=== PATIENT | female | born 1985 | race Caucasian/White ===

== ENCOUNTER 2017-08-09 13:53 | Emergency (ER) | payer BC, OTHER ==
--- NOTE | 2017-08-09 15:39 | EKG REPORT ---
SEVERITY:- OTHERWISE NORMAL ECG - SINUS RHYTHM BORDERLINE RIGHT AXIS DEVIATION : Confirmed by: Lisa Batista MD 09-Aug-2017 15:37:49
--- NOTE | 2017-08-09 15:50 | ER Document Report ---
ED Medical Screen (RME) - General Chief Complaint: Chest Pain Stated Complaint: CHEST PAINS Mode of Arrival: Ambulatory Information source: Patient TRAVEL OUTSIDE OF THE [place] IN LAST 30 DAYS: No - HPI Notes: 08/09/17 15:48 31 yr old female with complaints of palpitations for the last few years but has become progressively worse over the last couple. Reports she reports some difficulty with taking a full breath and hard to breath. no new medications, travel or new food.She is currently on her menses, stopped taking the depo shot x 1 month ago. Was told by a provider recently that she may have a heart murmur. Eating and drinking without issues. occasionally drinks coffee, smokes once a week when she drinks. Denies . Denies fevers, chills, chest pain , nausea, vomiting, diarrhea, abdominal pain, hematuria,blurred vision, double vision, loss of vision, speech changes, LH, dizziness, syncope, headaches, wheezing, ST, URI, neck pain, weakness, bowel or bladder dysfunction, saddle anesthesia, numbness or tingling in bilateral upper or lower extremities equally , muscle paralysis, weakness in bilateral upper or lower extremities equally or rash. Denies IV drug use. I have greeted and performed a rapid initial assessment of this patient. A comprehensive ED assessment and evaluation of the patient, analysis of test results and completion of medical decision making process will be conducted by an additional ED providers. - Related Data Allergies/Adverse Reactions: No Known Allergies Allergy (Verified 03/13/15 04:16) Past Medical History Psychiatric Medical History: Reports: Hx Attention Deficit Hyperactivity Disorder - Immunizations Hx Diphtheria, Pertussis, Tetanus Vaccination: Yes Review of Systems - Review of Systems Constitutional: See HPI EENT: No symptoms reported Cardiovascular: See HPI Respiratory: No symptoms reported Gastrointestinal: No symptoms reported Genitourinary: No symptoms reported Female Genitourinary: No symptoms reported Musculoskeletal: No symptoms reported Skin: No symptoms reported Hematologic/Lymphatic: No symptoms reported Neurological/Psychological: No symptoms reported Physical Exam - Vital signs Vitals: Temp Pulse Resp BP Pulse Ox 99.3 F 79 14 146/83 H 98 08/09/17 13:56 08/09/17 13:56 08/09/17 13:56 08/09/17 13:56 08/09/17 13:56 - Respiratory Respiratory status: No respiratory distress Breath sounds: Normal Chest palpation: Normal - Cardiovascular Rhythm: Other Murmur: Yes - S3 Normal capillary refill: Yes - Abdominal Inspection: Normal Distension: No distension Bowel sounds: Normal Tenderness: Nontender Organomegaly: No organomegaly Course - Vital Signs Vital signs: Temp Pulse Resp BP Pulse Ox 99.3 F 79 14 146/83 H 98 08/09/17 13:56 08/09/17 13:56 08/09/17 13:56 08/09/17 13:56 08/09/17 13:56 Doctor's Discharge - Discharge Referrals: GLEN MORGAN NP [Primary Care Provider] - Follow up as needed
--- NOTE | 2017-08-09 16:25 | RADIOLOGY REPORT (SQ) ---
EXAM DESCRIPTION: CHEST SINGLE VIEW COMPLETED DATE/TIME: 08/09/2017 4:13 pm REASON FOR STUDY: heart racing COMPARISON: 05/08/2012 EXAM PARAMETERS: NUMBER OF VIEWS: One view. TECHNIQUE: Single frontal radiographic view of the chest acquired. RADIATION DOSE: NA LIMITATIONS: None. FINDINGS: LUNGS AND PLEURA: No opacities, masses or pneumothorax. No pleural effusion. MEDIASTINUM AND HILAR STRUCTURES: No masses. Contour normal. HEART AND VASCULAR STRUCTURES: Heart normal in size. Normal vasculature. BONES: No acute findings. HARDWARE: None in the chest. OTHER: No other significant finding. IMPRESSION: NO ACUTE RADIOGRAPHIC FINDING IN THE CHEST. TECHNICAL DOCUMENTATION: JOB ID: [id number] [employer]- All Rights Reserved Reading location - IP/workstation name: [email or web address]
[2017-08-09 16:27] LABS: ABSOLUTE EOSINOPHILS # (AUTO) 0.1 10^3/uL (0.0-0.6); ABSOLUTE MONOCYTES (AUTO) 0.5 10^3/uL (0.1-1.4); ABSOLUTE NEUT (AUTO) 4.1 10^3/uL (1.7-8.2); BASOPHILS % (AUTO) 0.7 % (0-2); EOSINOPHILS % (AUTO) 1.1 % (0-6); HEMATOCRIT 41.6 % (36.0-47.0); HEMOGLOBIN 14.2 g/dL (12.0-15.5); LYMPHOCYTES % (AUTO) 29.8 % (13-45); MEAN CORPUSCULAR HEMOGLOBIN 30.9 pg (27.0-33.4); MEAN CORPUSCULAR HGB CONC 34.3 g/dL (32.0-36.0); MEAN CORPUSCULAR VOLUME 90 fl (80-97); MONOCYTES % (AUTO) 7.4 % (3-13); PLATELET COUNT 240 10^3/uL (150-450); RED BLOOD COUNT 4.61 10^6/uL (3.72-5.28); RED CELL DISTRIBUTION WIDTH 14.2 % (11.5-14.0); TOTAL CELLS COUNTED % (AUTO) 100 %; WHITE BLOOD COUNT 6.8 10^3/uL (4.0-10.5)
[2017-08-09 16:42] LABS: ALANINE AMINOTRANSFERASE 22 U/L (9-52); ALBUMIN 5.1 g/dL (3.5-5.0); ALKALINE PHOSPHATASE 92 U/L (38-126); ANION GAP 12 (5-19); ASPARTATE AMINO TRANSFERASE 19 U/L (14-36); BILIRUBIN,DIRECT 0.2 mg/dL (0.0-0.4); BILIRUBIN,TOTAL 0.5 mg/dL (0.2-1.3); BLOOD UREA NITROGEN 13 mg/dL (7-20); CARBON DIOXIDE 25 mmol/L (22-30); CHLORIDE 107 mmol/L (98-107); GLUCOSE 90 mg/dL (75-110); SODIUM 144.2 mmol/L (137-145); TOTAL PROTEIN 8.4 g/dL (6.3-8.2)
[2017-08-09 17:42] LABS: APPEARANCE,URINE CLEAR; BILIRUBIN,URINE NEGATIVE (NEGATIVE); COLOR,URINE STRAW; GLUCOSE, URINE NEGATIVE (NEGATIVE); KETONES,URINE NEGATIVE (NEGATIVE); LEUKOCYTE ESTERASE,URINE NEGATIVE (NEGATIVE); NITRITE,URINE NEGATIVE (NEGATIVE); PROTEIN,URINE NEGATIVE (NEGATIVE); URINE SPECIFIC GRAVITY 1.006; UROBILINOGEN,URINE NEGATIVE mg/dL (<2.0)
--- NOTE | 2017-08-09 18:51 | ER Document Report ---
ED General - General Chief Complaint: Chest Pain Stated Complaint: CHEST PAINS Time Seen by Provider: 08/09/17 16:14 Mode of Arrival: Ambulatory Information source: Patient TRAVEL OUTSIDE OF THE [place] IN LAST 30 DAYS: No - HPI Notes: 31 yr old female with complaints of palpitations for the last few years but has become progressively worse over the last couple. Reports she reports some difficulty with taking a full breath and hard to breath. no new medications, travel or new food.She is currently on her menses, stopped taking the depo shot x 1 month ago. Was told by a provider recently that she may have a heart murmur. Eating and drinking without issues. occasionally drinks coffee, smokes once a week when she drinks. Denies . Denies fevers, chills, chest pain , nausea, vomiting, diarrhea, abdominal pain, hematuria,blurred vision, double vision, loss of vision, speech changes, LH, dizziness, syncope, headaches, wheezing, ST, URI, neck pain, weakness, bowel or bladder dysfunction, saddle anesthesia, numbness or tingling in bilateral upper or lower extremities equally , muscle paralysis, weakness in bilateral upper or lower extremities equally or rash. Denies IV drug use. - Related Data Allergies/Adverse Reactions: No Known Allergies Allergy (Verified 03/13/15 04:16) Past Medical History - General Information source: Patient - Social History Smoking Status: Never Smoker Chew tobacco use (# tins/day): No Frequency of alcohol use: None Drug Abuse: None Family History: Reviewed & Not Pertinent Patient has suicidal ideation: No Patient has homicidal ideation: No Renal/ Medical History: Denies: Hx Peritoneal Dialysis Psychiatric Medical History: Reports: Hx Attention Deficit Hyperactivity Disorder - Immunizations Hx Diphtheria, Pertussis, Tetanus Vaccination: Yes Review of Systems - Review of Systems Constitutional: No symptoms reported EENT: No symptoms reported Cardiovascular: See HPI Respiratory: No symptoms reported Gastrointestinal: No symptoms reported Genitourinary: No symptoms reported Female Genitourinary: No symptoms reported Musculoskeletal: No symptoms reported Skin: No symptoms reported Hematologic/Lymphatic: No symptoms reported Neurological/Psychological: No symptoms reported Physical Exam - Vital signs Vitals: Temp Pulse Resp BP Pulse Ox 99.3 F 79 14 146/83 H 98 08/09/17 13:56 08/09/17 13:56 08/09/17 13:56 08/09/17 13:56 08/09/17 13:56 - Notes Notes: PHYSICAL EXAMINATION: GENERAL: Well-appearing, well-nourished and in no acute distress. HEAD: Atraumatic, normocephalic. EYES: Pupils equal round and reactive to light, extraocular movements intact, conjunctiva are normal. ENT: Nares patent, oropharynx clear without exudates. Moist mucous membranes. NECK: Normal range of motion, supple without lymphadenopathy LUNGS: Breath sounds clear to auscultation bilaterally and equal. No wheezes rales or rhonchi. HEART: Regular rate and rhythm without murmurs, noted S3 on auscultation ABDOMEN: Soft, nontender, nondistended abdomen. No guarding, no rebound. No masses appreciated. Female : deferred Musculoskeletal: Normal range of motion, no pitting or edema. No cyanosis. NEUROLOGICAL: Cranial nerves grossly intact. Normal speech, normal gait. Normal sensory, motor exams PSYCH: Normal mood, normal affect. SKIN: Warm, Dry, normal turgor, no rashes or lesions noted. Course - Re-evaluation Re-evalutation: 08/09/17 19:33 31-year-old female, afebrile, slightly tachycardic on initial presentation, however patient's heart rate did return to 60s, normal sinus rhythm. CBC negative for anemia or leukocytosis, CMP negative for hepatic deficiency, TSH within normal range. EKG shows non-STEMI. Chest x-ray negative. Urinalysis unremarkable. Discussed with patient that she does need follow-up with [facility] but she does not fact have a S3 heard on auscultation patient the need follow-up with cardiology and possible echocardiogram outpatient. Vitals are within normal limits at triage and at time of discharge. Physical examination is unremarkable. Patient has tolerated oral intake without difficulty. Patient was not noted to be in distress at any point during their ER visit. At this time, based on the reassuring evaluation, I do not suspect an acute HI, pneumothorax pulmonary embolus, aortic dissection, acute intra- abdominal pathology, stroke, or sepsis.Will discharge with return precautions and follow-up recommendations. Verbal discharge instructions given a the bedside and opportunity for questions given. Medication warnings reviewed. Patient is in agreement with this plan and has verbalized understanding of return precautions and the need for primary care follow-up in the next 24-72 hours. - Vital Signs Vital signs: Temp Pulse Resp BP Pulse Ox 98.9 F 62 18 122/76 100 08/09/17 18:55 08/09/17 18:55 08/09/17 18:55 08/09/17 18:55 08/09/17 18:55 - Laboratory Result Diagrams: 08/09/17 16:08 08/09/17 16:08 Laboratory results interpreted by me: 08/09/17 08/09/17 16:08 16:08 RDW 14.2 H Total Protein 8.4 H Albumin 5.1 H Discharge - Discharge Clinical Impression: Tachycardia, resolved tachycardia, Anxiety Condition: Stable Disposition: HOME, SELF-CARE Instructions: Anxiety ([facility]), Chest Pain of Unclear Cause ([facility]) Additional Instructions: All of your lab work was completely normal. Your thyroid is normal. Avoid caffeine, stimulants. Follow-up with [facility] within 1 week. Discuss guided imagery and stress reducing techniques. Follow-up with your primary care provider within 24-72 hours. Return immediately for any new or worsening symptoms. Follow up with primary care provider, call tomorrow to make followup appointment. Referrals: GLEN MORGAN NP [NURSE PRACTITIONER] - Follow up as needed BRAULIO ACEVEDO MD [ACTIVE STAFF] - Follow up in 3-5 days
[2017-08-09 18:56] VITALS: BP 122/76
== END 2017-08-09 18:55 | disposition home or self-care (01) ==
LOC: ER 13:53
DX: F41.9 Anxiety disorder, unspecified (principal); R00.2 Palpitations; R00.0 Tachycardia, unspecified
CPT/HCPCS: 36415; 71045; 80053; 81001; 81025; 83735; 84443; 85025; 85379; 93005; 93010; 99285

== ENCOUNTER 2018-05-08 10:52 | Emergency (ER) | payer BC ==
--- NOTE | 2018-05-08 11:22 | ER Document Report ---
ED Medical Screen (RME) - General Chief Complaint: Abdominal Pain Stated Complaint: ABDOMINAL PAIN Time Seen by Provider: 05/08/18 11:18 Primary Care Provider: ROCK IRAHETA DO [Primary Care Provider] - Follow up as needed Notes: Patient is here complaining of sudden onset of pain in right lower quadrant of her abdomen last evening about 7 PM. She had planned to go to dinner with her mother, but was unable to do so because of the severity of the pain. She had been feeling fine prior to the sudden onset of this pain. She has had some nausea but not vomiting. Some urinary frequency. Has not had any fever. Patient says that she was told that she probably had a kidney stone that she passed when she was , but no imaging was done because she was . Patient has palpitations for which she takes propanolol. Also has a history of anxiety. TRAVEL OUTSIDE OF THE [place] IN LAST 30 DAYS: No - Related Data Allergies/Adverse Reactions: No Known Allergies Allergy (Verified 05/08/18 10:55) Past Medical History Renal/ Medical History: Denies: Hx Peritoneal Dialysis Psychiatric Medical History: Reports: Hx Attention Deficit Hyperactivity Disorder - Immunizations Hx Diphtheria, Pertussis, Tetanus Vaccination: Yes Physical Exam - Vital signs Vitals: Temp Pulse Resp BP Pulse Ox 98.8 F 86 15 132/67 H 100 05/08/18 11:01 05/08/18 11:01 05/08/18 11:01 05/08/18 11:01 05/08/18 11:01 Course - Vital Signs Vital signs: Temp Pulse Resp BP Pulse Ox 98.8 F 86 15 132/67 H 100 05/08/18 11:01 05/08/18 11:01 05/08/18 11:01 05/08/18 11:01 05/08/18 11:01 Doctor's Discharge - Discharge Referrals: ROCK IRAHETA DO [Primary Care Provider] - Follow up as needed
[2018-05-08 11:50] LABS: ABSOLUTE LYMPHOCYTES (AUTO) 0.9 10^3/uL (0.5-4.7); ABSOLUTE MONOCYTES (AUTO) 0.4 10^3/uL (0.1-1.4); ABSOLUTE NEUT (AUTO) 4.7 10^3/uL (1.7-8.2); BASOPHILS % (AUTO) 0.3 % (0-2); EOSINOPHILS % (AUTO) 0.7 % (0-6); HEMATOCRIT 38.3 % (36.0-47.0); HEMOGLOBIN 13.6 g/dL (12.0-15.5); LYMPHOCYTES % (AUTO) 14.7 % (13-45); MEAN CORPUSCULAR HEMOGLOBIN 31.6 pg (27.0-33.4); MEAN CORPUSCULAR HGB CONC 35.5 g/dL (32.0-36.0); MEAN CORPUSCULAR VOLUME 89 fl (80-97); MONOCYTES % (AUTO) 6.6 % (3-13); PLATELET COUNT 166 10^3/uL (150-450); RED BLOOD COUNT 4.31 10^6/uL (3.72-5.28); RED CELL DISTRIBUTION WIDTH 13.2 % (11.5-14.0); SEGMENTED NEUTROPHILS % (AUTO) 77.7 % (42-78); TOTAL CELLS COUNTED % (AUTO) 100 %; WHITE BLOOD COUNT 6.1 10^3/uL (4.0-10.5)
[2018-05-08 11:51] LABS: APPEARANCE,URINE CLEAR; BILIRUBIN,URINE NEGATIVE (NEGATIVE); COLOR,URINE AMBER; GLUCOSE, URINE NEGATIVE (NEGATIVE); KETONES,URINE NEGATIVE (NEGATIVE); LEUKOCYTE ESTERASE,URINE NEGATIVE (NEGATIVE); NITRITE,URINE NEGATIVE (NEGATIVE); PROTEIN,URINE NEGATIVE (NEGATIVE); URINE SPECIFIC GRAVITY 1.008; UROBILINOGEN,URINE NEGATIVE mg/dL (<2.0)
[2018-05-08 12:00] LABS: ALANINE AMINOTRANSFERASE 18 U/L (9-52); ALKALINE PHOSPHATASE 74 U/L (38-126); ANION GAP 12 (5-19); ASPARTATE AMINO TRANSFERASE 16 U/L (14-36); BILIRUBIN,TOTAL 0.9 mg/dL (0.2-1.3); BLOOD UREA NITROGEN 13 mg/dL (7-20); CALCIUM 10.2 mg/dL (8.4-10.2); CARBON DIOXIDE 27 mmol/L (22-30); CHLORIDE 104 mmol/L (98-107); GLUCOSE 95 mg/dL (75-110); LIPASE 52.8 U/L (23-300); POTASSIUM 4.8 mmol/L (3.6-5.0); SODIUM 142.5 mmol/L (137-145)
--- NOTE | 2018-05-08 12:46 | RADIOLOGY REPORT (SQ) ---
EXAM DESCRIPTION: U/S NON OB PEL TV W/DOPPLER COMPLETED DATE/TIME: 05/08/2018 12:29 pm REASON FOR STUDY: RLQ pain, sudden onset, ? Hx kidney stone COMPARISON: None. TECHNIQUE: Dynamic and static grayscale images acquired of the pelvis via transvaginal approach and recorded on PACS. Additional selected color Doppler and spectral images recorded. LIMITATIONS: None. FINDINGS: UTERUS: Normal contour. Uterine fundus myometrium as heterogenous. ENDOMETRIAL STRIPE: No focal or generalized thickening. No masses. CERVIX: No nabothian cysts. RIGHT OVARY AND DOPPLER: Normal size. No worrisome masses. Normal vascular flow without evidence for torsion. LEFT OVARY AND DOPPLER: Complex cyst within the left ovary with low level internal echoes in no discr ete internal color flow. This measures 3.9 x 3.5 x 3.8 cm. Normal color flow within the left ovary. FREE FLUID: Small amount of free fluid in the pelvis which may be physiologic in a menstruating femal e. OTHER: No other significant finding. MEASUREMENTS: UTERUS: 7.5 x 4.8 x 5.7 cm ENDOMETRIAL STRIPE: 11 mm RIGHT OVARY: 2.8 x 1.7 x 1.9 cm LEFT OVARY: 4.4 x 4.1 x 4.4 cm. IMPRESSION: 1. Complex cyst of the left ovary. Differential considerations include hemorrhagic cyst, endometriom a, less likely dermoid. 2. Heterogenous appears a myometrium in the uterine fundus which may represent adenomyosis versus und erlying fibroid. COMMENT: Premenopausal US [id number] week followup US; if not a resolving hemorrhagic cyst, continued US or MRI followup; if endometrioma or dermoid still not confirmed, consider surgical cons ultation TECHNICAL DOCUMENTATION: JOB ID: [id number] [employer]- All Rights Reserved Rev-07/09 Reading location - IP/workstation name: [email or web address]
--- NOTE | 2018-05-08 12:49 | RADIOLOGY REPORT (SQ) ---
EXAM DESCRIPTION: U/S ABDOMEN LTD W/DOPPLER COMPLETED DATE/TIME: 05/08/2018 12:29 pm REASON FOR STUDY: RLQ pain, sudden onset, ? Hx kidney stone COMPARISON: None. TECHNIQUE: Dynamic and static grayscale images acquired of the abdomen and recorded on PACS. Armando amairani selected color Doppler and spectral images recorded. LIMITATIONS: Suboptimal exam due to overlying bowel gas and rib shadowing. FINDINGS: PANCREAS: Obscured by overlying bowel gas. LIVER: No masses. Echotexture normal. LIVER VASCULATURE: Normal directional flow of the main portal vein and hepatic veins. GALLBLADDER: No stones. Normal wall thickness. No pericholecystic fluid. ULTRASOUND-DETECTED RANDLE'S SIGN: Negative. INTRAHEPATIC DUCTS AND COMMON DUCT: CBD and intrahepatic ducts normal caliber. No filling defects. INFERIOR VENA CAVA: Obscured due to overlying bowel gas. AORTA: No aneurysm. RIGHT KIDNEY: Normal size. Normal echogenicity. No solid or suspicious masses. No hydronephrosis. No calcifications. PERITONEAL AND RIGHT PLEURAL SPACE: No ascites or effusions. OTHER: Survey images of the right lower quadrant of the abdomen demonstrate no mass or free fluid. IMPRESSION: Suboptimal exam due to shadowing from overlying bowel gas and ribs. Normal right upper quadrant ultrasound. TECHNICAL DOCUMENTATION: JOB ID: [id number] [employer]- All Rights Reserved Reading location - IP/workstation name: [email or web address]
--- NOTE | 2018-05-08 13:26 | ER Document Report ---
ED GI/ - General Chief Complaint: Abdominal Pain Stated Complaint: ABDOMINAL PAIN Time Seen by Provider: 05/08/18 11:18 Primary Care Provider: ROCK IRAHETA DO [Primary Care Provider] - Follow up as needed Information source: Patient Notes: Patient is a 32-year-old female who presents today with the onset of some bilateral lower quadrant pain right greater than left starting yesterday. Worse with movement. No aggravating or relieving factors otherwise. No fevers, dysuria, vomiting, vaginal discharge, missed menstrual periods, or flank pain. No previous pain to this region prior. TRAVEL OUTSIDE OF THE [place] IN LAST 30 DAYS: No - Related Data Allergies/Adverse Reactions: No Known Allergies Allergy (Verified 05/08/18 10:55) Past Medical History - Social History Smoking Status: Former Smoker Family History: Reviewed & Not Pertinent Patient has suicidal ideation: No Patient has homicidal ideation: No Renal/ Medical History: Denies: Hx Peritoneal Dialysis Psychiatric Medical History: Reports: Hx Attention Deficit Hyperactivity Disorder - Immunizations Hx Diphtheria, Pertussis, Tetanus Vaccination: Yes Review of Systems - Review of Systems Constitutional: denies: Fever EENT: denies: Eye discharge, Nose discharge Cardiovascular: denies: Chest pain, Palpitations Respiratory: denies: Short of breath Gastrointestinal: denies: Vomiting Genitourinary: denies: Dysuria Musculoskeletal: denies: Leg swelling Skin: Other - no hives. denies: Rash Neurological/Psychological: Other - no slurred speech -: Yes All other systems reviewed and negative Physical Exam - Vital signs Vitals: Temp Pulse Resp BP Pulse Ox 98.8 F 86 15 132/67 H 100 05/08/18 11:01 05/08/18 11:01 05/08/18 11:01 05/08/18 11:01 05/08/18 11:01 Notes: Reviewed vital signs and nursing note as charted by RN. CONSTITUTIONAL: Alert and oriented and responds appropriately to questions. Well-appearing; well-nourished HEAD: Normocephalic; atraumatic EYES: Sclerae non-icteric ENT: Normal nose; no rhinorrhea; moist mucous membranes; pharynx without lesions noted NECK: Supple without meningismus; non-tender; no cervical lymphadenopathy, no masses CARD: Regular rate and rhythm; no murmurs; symmetric distal pulses RESP: Normal chest excursion without splinting or tachypnea; breath sounds clear and equal bilaterally ABD/GI: Normal bowel sounds; non-distended; soft, tender to palpation of the bilateral lower quadrants, right greater than left. No rebound or guarding. No palpable masses GI/: With log truck driver present I did perform a pelvic examination. I do not detect any obvious external lesions. Patient has minimal whitish discharge in the vaginal vault. No obvious adnexal masses. Minimal cervical tenderness BACK: The back appears normal and is non-tender to palpation EXT: Normal ROM in all joints; non-tender to palpation; no edema SKIN: No acute lesions noted NEURO: CN 2-12 intact; 5/5 bilateral upper and lower extremity strength with sensation intact to light touch PSYCH: The patient's mood and manner are appropriate. Grooming and personal hygiene are appropriate. Course - Re-evaluation Re-evalutation: Given the history and physical examination we will order urinalysis, test, abdominal labs, and in triage and ultrasound transvaginal and right upper quadrant were ordered. Patient currently has no complaints of right upper quadrant tenderness on my exam and has no tenderness on palpation. 05/08/18 13:25 Ultrasound as recorded. This shows a left adnexal cyst. On reexam the patient's pain is still to the right lower quadrant. I will obtain a CT scan of the abdomen and pelvis with IV contrast. I would like to assess for the possibility of appendicitis. If this is unremarkable, patient will be discharged home with strict return precautions and follow-up with the VASCULAR PHYSICIAN. Patient has been afebrile and has very minimal cervical motion tenderness. Patient's boyfriend supposedly was unfaithful within the last 6 months. I will provide a one-time dose of Rocephin and azithromycin with cultures pending at discharge. 05/08/18 16:01 CT scan of the abdomen and pelvis as recorded. Pelvic labs as recorded. Patient's pain is improved. Patient will be discharged home with strict return precautions. Normal white blood cell count. No obvious urinary tract infect ion. No obvious kidney stones present with some very mild right-sided hydronephrosis. Given the above history and physical examination, patient will be discharged home with strict return precautions and follow-up with the primary care physician and VASCULAR PHYSICIAN. - Vital Signs Vital signs: Temp Pulse Resp BP Pulse Ox 98.8 F 86 15 132/67 H 100 05/08/18 11:01 05/08/18 11:01 05/08/18 11:01 05/08/18 11:01 05/08/18 11:01 - Laboratory Result Diagrams: 05/08/18 11:24 05/08/18 11:24 Laboratory results interpreted by me: 05/08/18 11:24 Urine Blood SMALL H Discharge - Discharge Clinical Impression: Pelvic pain, Left ovarian cyst Condition: Good Disposition: HOME, SELF-CARE Additional Instructions: Come back immediately with any increased pain, change in location or quality of pain, fevers or vomiting, or any other acute problems. Please follow-up with your primary doctor as we have discussed. Referrals: ROCK IRAHETA, [Primary Care Provider] - Follow up as needed
[2018-05-08] MEDS ORDERED: AZITHROMYCIN 1 GM SUSP PACKET PO ONE (13:28)
[2018-05-08 13:35] LABS: T.VAGINALIS (WET MOUNT) NO TRICHOMONAS SEEN; WBCS (WET MOUNT) RARE WBCS SEEN; YEAST (WET MOUNT) NO YEAST SEEN
[2018-05-08 15:02] LABS: CHLAM PCR NOT DETECTED (NOT DETECT); GON PCR NOT DETECTED (NOT DETECT)
--- NOTE | 2018-05-08 15:40 | RADIOLOGY REPORT (SQ) ---
EXAM DESCRIPTION: CT ABD/PELVIS WITH IV ONLY COMPLETED DATE/TIME: 05/08/2018 3:25 pm REASON FOR STUDY: 38: RLQ pain COMPARISON: Same day abdominal and pelvic ultrasound TECHNIQUE: CT scan of the abdomen and pelvis performed using helical scanning technique with dynamic intravenous contrast injection. No oral contrast. Images reviewed with lung, soft tissue, and bone windows. Reconstructed coronal and sagittal MPR images reviewed. Delayed images for evaluation of the urinary system also acquired. All images stored on PACS. All CT scanners at this facility use dose modulation, iterative reconstruction, and/or weight based d osing when appropriate to reduce radiation dose to as low as reasonably achievable (ALARA). [facility]: Dose Right [facility]: CareDose [facility]: Dose Right [facility]: Teradose 4D [facility]: i-nexus CONTRAST TYPE AND DOSE: contrast/concentration: Isovue 350.00 mg/ml; Total Contrast Delivered: 74.0 ml; Total Saline Delivered: 67.0 ml 74 mL IV of Omnipaque 350- low osmolar. RENAL FUNCTION: BUN 13 creatinine 0.64 RADIATION DOSE: CT Rad equipment meets quality standard of care and radiation dose reduction techniq ues were employed. CTDIvol: NaN - NaN mGy. DLP: 0 mGy-cm.. LIMITATIONS: None. FINDINGS: LOWER CHEST: No significant findings. No nodules or infiltrates. LIVER: Normal size. No masses. No dilated ducts. SPLEEN: Normal size. No focal lesions. PANCREAS: No masses. No significant calcifications. No adjacent inflammation or peripancreatic fluid collections. Pancreatic duct not dilated. GALLBLADDER: No identified stones by CT criteria. No inflammatory changes to suggest cholecystitis. ADRENAL GLANDS: No significant masses or asymmetry. RIGHT KIDNEY AND URETER: No solid masses. Minimal right hydronephrosis. No nephrolithiasis or obstr ucting lesion P LEFT KIDNEY AND URETER: No solid masses. No significant calcifications. No hydronephrosis or hydr oureter. AORTA AND VESSELS: No aneurysm. No dissection. Renal arteries, SMA, celiac without stenosis. RETROPERITONEUM: No retroperitoneal adenopathy, hemorrhage or masses. BOWEL AND PERITONEAL CAVITY: No dilated loops of bowel. No masses or inflammatory changes. No free f luid or peritoneal masses. No intraperitoneal free air. APPENDIX: Normal. PELVIS: Left adnexal cyst measuring 3.5 x 4 1 cm on this exam, corresponding to the prior ultrasound. Trace pelvic free fluid, likely physiologic in a menstruating female. ABDOMINAL WALL: No masses. No hernias. BONES: No significant or acute findings. OTHER: No other significant finding. IMPRESSION: 1. Minimal right-sided hydronephrosis. No nephrolithiasis or obstructing lesion visualized. Otherwi se, no acute findings within the abdomen or pelvis. 2. Complex left adnexal cyst corresponding to the ovarian cyst seen on prior pelvic ultrasound. Oumar mmendations remain the same. TECHNICAL DOCUMENTATION: JOB ID: [id number] Quality ID # [id number]: Final reports with documentation of one or more dose reduction techniques (e.g., Au tomated exposure control, adjustment of the mA and/or kV according to patient size, use of iterative reconstruction technique) 2010 [employer]- All Rights Reserved Reading location - IP/workstation name: [email or web address]
[2018-05-08 16:50] VITALS: BP 116/68
== END 2018-05-08 16:40 | disposition home or self-care (01) ==
LOC: ER 10:52
DX: N83.202 Unspecified ovarian cyst, left side (principal); R10.2 Pelvic and perineal pain; R10.30 Lower abdominal pain, unspecified
CPT/HCPCS: 99284; 36415; 87210; 83690; 84703; 85025; 80053; 81001; 87491; 87591; 76705; 76830; 93976; 74177; Q0144

== ENCOUNTER → 2018-08-19 | Outpatient (CLI) | payer BC ==
[2018-08-19 09:27] LABS: ABSOLUTE EOSINOPHILS # (AUTO) 0.1 10^3/uL (0.0-0.6); ABSOLUTE LYMPHOCYTES (AUTO) 1.5 10^3/uL (0.5-4.7); ABSOLUTE MONOCYTES (AUTO) 0.3 10^3/uL (0.1-1.4); ABSOLUTE NEUT (AUTO) 1.7 10^3/uL (1.7-8.2); BASOPHILS % (AUTO) 0.8 % (0-2); EOSINOPHILS % (AUTO) 1.6 % (0-6); LYMPHOCYTES % (AUTO) 41.4 % (13-45); MEAN CORPUSCULAR HGB CONC 34.9 g/dL (32.0-36.0); MEAN CORPUSCULAR VOLUME 89 fl (80-97); MONOCYTES % (AUTO) 8.6 % (3-13); PLATELET COUNT 178 10^3/uL (150-450); RED BLOOD COUNT 4.51 10^6/uL (3.72-5.28); RED CELL DISTRIBUTION WIDTH 13.1 % (11.5-14.0); SEGMENTED NEUTROPHILS % (AUTO) 47.6 % (42-78); TOTAL CELLS COUNTED % (AUTO) 100 %; WHITE BLOOD COUNT 3.6 10^3/uL (4.0-10.5)
[2018-08-19 09:57] LABS: ALANINE AMINOTRANSFERASE 49 U/L (9-52); ALBUMIN 4.8 g/dL (3.5-5.0); ALKALINE PHOSPHATASE 63 U/L (38-126); ANION GAP 8 (5-19); ASPARTATE AMINO TRANSFERASE 41 U/L (14-36); BILIRUBIN,DIRECT 0.2 mg/dL (0.0-0.4); BILIRUBIN,TOTAL 0.3 mg/dL (0.2-1.3); BLOOD UREA NITROGEN 8 mg/dL (7-20); CALCIUM 9.7 mg/dL (8.4-10.2); CARBON DIOXIDE 30 mmol/L (22-30); CHLORIDE 103 mmol/L (98-107); CHOLESTEROL 134.71 mg/dL (0-200); GLUCOSE 85 mg/dL (75-110); SODIUM 141.2 mmol/L (137-145); TOTAL PROTEIN 7.6 g/dL (6.3-8.2); TRIGLYCERIDES 47 mg/dL (<150)
[2018-08-19 10:08] LABS: DIRECT LDL 70 mg/dL (<100)
[2018-08-19 10:12] LABS: POTASSIUM 4.8 mmol/L (3.6-5.0)
== END ==
LOC: OD 07:45
PROVIDERS: ATTEND Nurse Practitioner Psychiatric/Mental Health
DX: Z79.899 Other long term (current) drug therapy (principal)
CPT/HCPCS: 36415; 80053; 80061; 82306; 84443; 85025